=== PATIENT | female | born 1980 | race African-American/Black ===

== ENCOUNTER 2021-09-09 12:42 | Inpatient (IN) | payer BC ==
[2021-09-09] MEDS ORDERED: LOPERAMIDE HCL 2 MG CAPSULE PO PRN (15:13)
[2021-09-09] MEDS ORDERED: BISMUTH SUBSALICYLATE 524 MG/30 ML PO PRN (15:13)
[2021-09-09] MEDS ORDERED: ONDANSETRON *ODT* 4 MG TABLET SL PRN (15:13)
[2021-09-09] MEDS ORDERED: MAGNESIUM HYDROX 2400MG/30ML ORAL SUSPENSION 30 ML CUP PO PRN (15:13)
[2021-09-09] MEDS ORDERED: MAG HYDROX/AL HYDROX/SIMETH 30 ML UNIT-DOSE CUP PO PRN (15:13)
[2021-09-09] MEDS ORDERED: chlordiazePOXIDE HCL 25 MG CAPSULE PO PRN (15:13)
[2021-09-09] MEDS ORDERED: MENTHOL/PHENOL 1 EACH UD MM PRN (15:13)
[2021-09-09] MEDS ORDERED: MAGNESIUM CITRATE 300 ML BOTTLE PO PRN (15:13)
[2021-09-09] MEDS ORDERED: METHOCARBAMOL 500 MG TABLET PO PRN (15:13)
[2021-09-09] MEDS ORDERED: ACETAMINOPHEN 325 MG TABLET (FP) PO PRN (15:13)
[2021-09-09 16:46] VITALS: BMI 28.4
[2021-09-09] MEDS: hydrOXYzine PAMOATE 25 MG CAPSULE (FP) PO SCH ×2 (18:17→22:56)
[2021-09-09] MEDS: chlordiazePOXIDE HCL 25 MG CAPSULE PO SCH ×2 (18:17→23:06)
[2021-09-09] MEDS: ACETAMINOPHEN 325 MG TABLET (FP) PO PRN (18:22)
[2021-09-09] MEDS: THIAMINE HCL 100 MG TABLET (FP) PO SCH (22:56)
[2021-09-09] MEDS: MELATONIN 5 MG TABLETS PO SCH (22:56)
[2021-09-10] MEDS: hydrOXYzine PAMOATE 25 MG CAPSULE (FP) PO SCH ×5 (06:45→22:26)
[2021-09-10] MEDS: chlordiazePOXIDE HCL 25 MG CAPSULE PO SCH ×4 (06:45→22:29)
[2021-09-10] MEDS: NICOTINE 10 MG CARTRIDGE (INHALER) IH PRN ×2 (07:29→13:45)
[2021-09-10] MEDS: PRENATAL VITAMINS W/ FOLIC ACID TABLET (FP) PO SCH (11:06)
[2021-09-10 13:38] LABS: ALBUMIN 3.4 g/dl (3.4-5.0); BLOOD UREA NITROGEN 8.5 mg/dL (7-18)
[2021-09-10 13:41] LABS: CREATININE 0.8 mg/dL (0.55-1.3)
[2021-09-10 13:42] LABS: HEMATOCRIT 30.1 % (32.4-45.2); HEMOGLOBIN 9.7 GM/dL (10.7-15.3); MCH 25.1 pg (25.7-33.7); MCHC 32.4 g/dl (32.0-36.0); MEAN CELL VOLUME 77.7 fl (80-96); MEAN PLT VOLUME 7.4 fl (7.5-11.1); PLATELET COUNT 312 10^3/uL (134-434); RBC 3.87 M/mm3 (3.60-5.2); RDW 19.5 % (11.6-15.6); WHITE BLOOD COUNT 6.7 K/mm3 (4.0-10.0)
[2021-09-10 13:43] LABS: BILIRUBIN,TOTAL 0.6 mg/dL (0.2-1); TOT PROT 6.9 g/dl (6.4-8.2)
[2021-09-10 14:22] LABS: HIV INTERPRETATION NEGATIVE (NEGATIVE)
[2021-09-10] MEDS: ACETAMINOPHEN 325 MG TABLET (FP) PO PRN (18:40)
[2021-09-10] MEDS: THIAMINE HCL 100 MG TABLET (FP) PO SCH (22:26)
[2021-09-10] MEDS: IBUPROFEN 400 MG TABLET (FP) PO PRN (22:26)
[2021-09-10] MEDS: MELATONIN 5 MG TABLETS PO SCH (23:33)
[2021-09-11] MEDS: hydrOXYzine PAMOATE 25 MG CAPSULE (FP) PO SCH ×5 (06:39→22:13)
[2021-09-11] MEDS: chlordiazePOXIDE HCL 25 MG CAPSULE PO SCH ×4 (06:39→22:14)
[2021-09-11] MEDS: PRENATAL VITAMINS W/ FOLIC ACID TABLET (FP) PO SCH (10:25)
[2021-09-11] MEDS ORDERED: cloNIDine HCL 0.1 MG TABLET PO PRN (10:29)
[2021-09-11] MEDS: IBUPROFEN 400 MG TABLET (FP) PO PRN ×2 (12:08→17:59)
[2021-09-11] MEDS: CYANOCOBALAMIN 1,000 MCG TABLET (FP) PO SCH (12:10)
[2021-09-11] MEDS: FERROUS GLUCONATE 324 MG TAB (FP) PO SCH (12:11)
[2021-09-11] MEDS: ACETAMINOPHEN 325 MG TABLET (FP) PO PRN ×2 (13:42→22:15)
[2021-09-11] MEDS: THIAMINE HCL 100 MG TABLET (FP) PO SCH (22:13)
[2021-09-11] MEDS: MELATONIN 5 MG TABLETS PO SCH (22:13)
[2021-09-12] MEDS ORDERED: chlordiazePOXIDE HCL 10 MG CAPSULE PO PRN
[2021-09-12] MEDS: hydrOXYzine PAMOATE 25 MG CAPSULE (FP) PO SCH ×5 (06:42→22:47)
[2021-09-12] MEDS: chlordiazePOXIDE HCL 10 MG CAPSULE PO SCH ×4 (06:43→22:47)
[2021-09-12] MEDS: ACETAMINOPHEN 325 MG TABLET (FP) PO PRN ×3 (06:43→15:41)
[2021-09-12] MEDS: NICOTINE 10 MG CARTRIDGE (INHALER) IH PRN ×3 (07:22→19:23)
[2021-09-12] MEDS: PRENATAL VITAMINS W/ FOLIC ACID TABLET (FP) PO SCH (10:35)
[2021-09-12] MEDS: FERROUS GLUCONATE 324 MG TAB (FP) PO SCH (10:35)
[2021-09-12] MEDS: CYANOCOBALAMIN 1,000 MCG TABLET (FP) PO SCH (11:00)
[2021-09-12 13:07] LABS: SARS-CoV-2 NAA Not Detected (Not Detected)
[2021-09-12] MEDS: IBUPROFEN 400 MG TABLET (FP) PO PRN ×2 (14:17→22:46)
[2021-09-12] MEDS: THIAMINE HCL 100 MG TABLET (FP) PO SCH (22:47)
[2021-09-12] MEDS: MELATONIN 5 MG TABLETS PO SCH (22:47)
[2021-09-13] MEDS: hydrOXYzine PAMOATE 25 MG CAPSULE (FP) PO SCH ×3 (06:36→13:40)
[2021-09-13] MEDS: chlordiazePOXIDE HCL 10 MG CAPSULE PO SCH ×2 (06:36→18:09)
[2021-09-13] MEDS: ACETAMINOPHEN 325 MG TABLET (FP) PO PRN ×3 (06:37→22:30)
[2021-09-13] MEDS: IBUPROFEN 400 MG TABLET (FP) PO PRN ×2 (10:22→18:09)
[2021-09-13] MEDS: FERROUS GLUCONATE 324 MG TAB (FP) PO SCH (10:22)
[2021-09-13] MEDS: PRENATAL VITAMINS W/ FOLIC ACID TABLET (FP) PO SCH (10:25)
[2021-09-13] MEDS: NICOTINE 10 MG CARTRIDGE (INHALER) IH PRN ×3 (10:38→22:31)
[2021-09-13] MEDS: CYANOCOBALAMIN 1,000 MCG TABLET (FP) PO SCH (12:15)
[2021-09-13] MEDS ORDERED: hydrOXYzine PAMOATE 25 MG CAPSULE (FP) PO PRN (14:28)
[2021-09-13] MEDS: THIAMINE HCL 100 MG TABLET (FP) PO SCH (22:30)
[2021-09-13] MEDS: MELATONIN 5 MG TABLETS PO SCH (22:41)
[2021-09-14] MEDS ORDERED: chlordiazePOXIDE HCL 10 MG CAPSULE PO ONE (05:00)
[2021-09-14] MEDS: ACETAMINOPHEN 325 MG TABLET (FP) PO PRN (06:00)
[2021-09-14] MEDS: NICOTINE 10 MG CARTRIDGE (INHALER) IH PRN (06:01)
[2021-09-14 06:41] VITALS: TEMP 97.5
[2021-09-14 08:38] VITALS: BP 133/85; PULSE 75
== END 2021-09-14 09:36 | disposition home or self-care (01) | DRG 774 ==
LOC: YASAS 12:42 → Y3N 17:11
PROVIDERS: ADMIT Allergy & Immunology; ATTEND Allergy & Immunology
PROC: HZ2ZZZZ Detoxification Services for Substance Abuse Treatment (ICD-10-PCS; principal; 2021-09-09)
DX: F10.230 Alcohol dependence with withdrawal, uncomplicated (principal); F14.10 Cocaine abuse, uncomplicated; F12.10 Cannabis abuse, uncomplicated; F17.210 Nicotine dependence, cigarettes, uncomplicated; D50.9 Iron deficiency anemia, unspecified
CPT/HCPCS: 36415; 80053; 81025; 85027; 86780; 87389; 87811; 93005; 93010; C9803; J0735; U0003; U0005